=== PATIENT | female | born 1990 | race Two or more races ===

== ENCOUNTER 2018-01-10 13:18 | Emergency (ER) | payer OTHER ==
[~2018-01-10] VITALS: Ht 154.9 cm; Wt 59.0 kg
[~2018-01-10 13:18] MED LIST: BACTRIM DS TAB1 EAC1 ORAL; IBUPROFEN600 MG ORAL; KEFLEX500 MG ORAL; NKM; NORCO 5-325 TA1 EACH ORAL; ROBAXIN-750750 MG PO; VALIUM5 MG ORAL; [UNRECOGNIZED DRUG - REMARK]
[2018-01-10 13:32] VITALS: BP 110/70
--- NOTE | 2018-01-10 13:57 | Emergency Room Report ---
History of Present Illness General Chief Complaint: Animal Bite Source: Patient Present Illness HPI 27-year-old female presents to the emergency department complaining of 3 out of 10 in severity localized tenderness with small superficial puncture wound status post receiving By last night. Patient reports she was bitten by a stray cat on the posterior right ankle. Patient denies bleeding however she states when she attempted to clean the wound there was burning sensation. Patient is not sure when her last tetanus vaccination is. She states she was not going to come initially, however she began having increased pain and wants to make sure it is not infected. Allergies: Uncoded Allergies: CAT (Allergy, Unknown, 01/10/18) Patient History Past Medical History: see triage record Past Surgical History: none Pertinent Family History: none Last Menstrual Period: 12/29 Now: No Reviewed Nursing Documentation: PMH: Agreed; PSxH: Agreed Nursing Documentation-PMH Past Medical History: No Stated History Review of Systems All Other Systems: negative except mentioned in HPI Physical Exam Vital Signs Date Time Temp Pulse Resp B/P (MAP) Pulse Ox O2 Delivery O2 Flow Rate FiO2 01/10/18 13:28 98.1 58 16 110/70 97 Room Air 98.1 Sp02 EP Interpretation: reviewed, normal General Appearance: no apparent distress, alert, GCS 15, non-toxic Head: normocephalic, atraumatic ENT: hearing grossly normal, normal voice Neck: full range of motion Respiratory: lungs clear, normal breath sounds, speaking full sentences Cardiovascular #1: regular rate, rhythm, normal capillary refill Musculoskeletal: back normal, gait/station normal, normal range of motion, non- tender Neurologic: alert, oriented x3, responsive, motor strength/tone normal, sensory intact, normal gait, speech normal, grossly normal Psychiatric: judgement/insight normal Skin: normal color, no rash, warm/dry, well hydrated, other - Cat bite on the right posterior ankle with two small puncture wounds, superficial no obvious infection at this time. Lymphatic: no adenopathy Medical Decision Making PA Attestation Dr. Lopez is my supervising Physician whom patient management has been discussed with. Diagnostic Impression: Primary Impression: Animal bite of ankle Qualified Codes: S91.051A - Open bite, right ankle, initial encounter ER Course 27-year-old female presents to the emergency department complaining of 3 out of 10 in severity localized tenderness with small superficial puncture wound status post receiving By last night. Patient reports she was bitten by a stray cat on the posterior right ankle. Patient denies bleeding however she states when she attempted to clean the wound there was burning sensation. Patient is not sure when her last tetanus vaccination is. She states she was not going to come initially, however she began having increased pain and wants to make sure it is not infected. Ddx considered but are not limited to Cellulitis, rabies, fracture, neurovascular compromise of extremity. Vital signs: are WNL, pt. is afebrile H&PE are most consistent with Cat bite on the right posterior ankle with two small puncture wounds, superficial no obvious infection at this time. ORDERS: none required at this time, the diagnosis is clinical ED INTERVENTIONS: Tetanus vaccination is administered. Animal bite report was made. DISCHARGE: At this time pt. is stable for d/c to home. Will provide printed patient care instructions, and any necessary prescriptions. Care plan and follow up instructions have been discussed with the patient prior to discharge. * Augmentin TID x 7 days. Last Vital Signs Date Time Temp Pulse Resp B/P (MAP) Pulse Ox O2 Delivery O2 Flow Rate FiO2 01/10/18 13:32 98.1 58 16 110/70 97 Room Air 98.1 Disposition: HOME, SELF-CARE Condition: Stable Scripts Amoxicillin/Potassium Clav 875-125* (AUGMENTIN 875-125 TABLET*) 1 Each Tablet 1 TAB ORAL TWICE A DAY for 7 Days, #14 TAB Prov: Gricelda Kirk 01/10/18 Bacitracin/Polymyxin B Sulfate (BACITRACIN-POLYMYXIN OINTMENT) 28.35 Gm Oint...g. 1 APPLIC TP BID, #28.3 GM Prov: Gricelda Kirk 01/10/18 Patient Instructions: Animal Bite Additional Instructions: Take medications as directed. Follow up with a Primary Care Provider in 3-5 days, even if your symptoms have resolved. --Please review list of primary care clinics, if you do not already have a primary care provider Return sooner to ED if new symptoms occur, or current symptoms become worse. - Please note that this Emergency Department Report was dictated using [employer] gun sizer technology software, occasionally this can lead to erroneous entry secondary to interpretation by the dictation equipment. Gricelda Kirk Jan 10, 2018 13:57
[2018-01-10] MEDS ORDERED: AUGMENTIN 875-1 EAC1 ORAL (13:58)
[2018-01-10] MEDS ORDERED: BACITRACIN-P28.35 GM TP (13:58)
[2018-01-10] MEDS ORDERED: Tetanus/Diptheria/Pertussis Vaccine 0.5ml Syr IM ONE (14:00)
[2018-01-10] MEDS ORDERED: Bacitracin Oint UD TOPIC ONE (14:00)
== END 2018-01-10 14:22 | disposition home or self-care (01) ==
LOC: EMR 13:56
DX: S91.031A Puncture wound without foreign body, right ankle, initial encounter (principal); W55.01XA Bitten by cat, initial encounter; Y92.9 Unspecified place or not applicable; Z23 Encounter for immunization
CPT/HCPCS: 90471; 90715; 99283